=== PATIENT | female | born 1985 | race Caucasian/White ===

== ENCOUNTER 2018-12-20 23:00 | Emergency (ER) | payer OTHER ==
[~2018-12-20] VITALS: Ht 160 cm; Wt 50.4 kg
[~2018-12-20 23:00] MED LIST: CYCL10TA7 PO; HYDR-4011 PO; IBUP-1542 PO; PRENAT PO; TRAM50TA2 PO
[2018-12-20 23:18] VITALS: Ht 160 cm; Wt 50.4 kg
[2018-12-21] MEDS ORDERED: HYDROCODONE/APAP (10/325) TAB PO ONE (03:00)
--- NOTE | 2018-12-21 04:00 | ERD ---
ER Documentation Chief Complaint Chief Complaint C/O LT HIP/PELVIC PAIN S/P FALL, S/O PAIN AND BURNING W/ URINATION X3 DAYS HPI This is a 33-year-old female who was at the park when she said she was playing on some equipment and she slipped because she had socks on doing the splits. She says she is complaining of left groin pain. She said this left leg is was the leg in front of her. She is complaining of pain in the left groin that sharp worse with movement better with rest. Did not have any other trauma or head injury. She has some pain with walking but can stand. She is also complaining of dysuria ROS All systems reviewed and are negative except as per history of present illness. Medications Home Meds Discontinued Reported Medications Multivit/Min/Fol Ac/Iron/Pren* ( S*) 1 Tab Tab, 1 TAB PO DAILY, TAB 05/09/14 Discontinued Scripts Hydrocodone/Acetaminophen ([place] 5-325 Tablet) 1 Each Tablet, 1 TAB PO Q6H PRN for PAIN, #20 TAB Prov:VISHAL SUERO [employer] 05/05/16 Cyclobenzaprine Hcl* (Cyclobenzaprine Hcl*) 10 Mg Tablet, 10 MG PO BID, #10 TAB Prov:DOUG FITZPATRICK PA-C 04/23/16 Ibuprofen* (Motrin*) 600 Mg Tab, 600 MG PO Q6, #30 TAB Prov:DOUG FITZPATRICK PA-C 04/23/16 Tramadol HCl (Tramadol HCl) 50 Mg Tablet, 50 MG PO Q4 PRN for PAIN, #20 TAB Prov:DOUG FITZPATRICK PA-C 04/23/16 Allergies Allergies: Coded Allergies: No Known Drug Allergies (Unverified Allergy, Mild, 12/21/18) PMhx/Soc History of Surgery: Yes (abdominal surgery) Anesthesia Reaction: No Hx Neurological Disorder: No Hx Respiratory Disorders: No Hx Cardiac Disorders: No Hx Psychiatric Problems: No Hx Miscellaneous Medical Probl: No Hx Alcohol Use: No Hx Substance Use: No Hx Tobacco Use: No FmHx Family History: No coronary disease Physical Exam Vitals Vital Signs Date Temp Pulse Resp B/P (MAP) Pulse Ox O2 O2 Flow FiO2 Time Delivery Rate 5/9/19 99.7 83 17 117/56 98 23:18 (76) Physical Exam Const: Well-developed, well-nourished Head: Atraumatic, normocephalic Eyes: Normal Conjunctiva, PERRLA, EOMI, normal sclera, no nystagmus ENT: Normal External Ears, Nose and Mouth, moist mucus membranes. Neck: Full range of motion. No meningismus, no lymphadenopathy. Resp: Clear to auscultation bilaterally, no wheezing, rhonchi, rales Cardio: Regular rate and rhythm, no murmurs, S1 S2 present Abd: Soft, non tender x 4, non distended. Normal bowel sounds, no guarding or rebound, no pulsitile abdominal masses or bruits Skin: No petechiae or rashes, no ecchymosis , no maculopapular rash Back: No midline or flank tenderness Ext: No cyanosis, or edema, FROM x 4, normal inspection, neurovascularly intact x 4, there is tenderness to the left inguinal region there is no deformity, there is no pain with external rotation and flexion Neur: Awake and alert, STR 5/5 x 4, sensation intact x 4, no focal findings, cerebellum intact Psych: Normal Mood and Affect Results 24 hrs Laboratory Tests Test 12/21/18 02:27 12/21/18 02:30 12/21/18 03:08 Bedside Urine pH (LAB) 7.0 Bedside Urine Protein (LAB) Trace Bedside Urine Glucose (UA) Negative Bedside Urine Ketones (LAB) Negative Bedside Urine Blood Trace-intact Bedside Urine Nitrite (LAB) Positive Bedside Urine Leukocyte Esterase 1+ (L POC Beta HCG, Qualitative NEGATIVE Urine Color BELLE Urine Clarity CLOUDY Urine pH 6.0 Urine Specific [place] 1.023 Urine Ketones NEGATIVE mg/dL Urine Nitrite POSITIVE mg/dL Urine Bilirubin NEGATIVE mg/dL Urine Urobilinogen NEGATIVE mg/dL Urine Leukocyte Esterase 1+ [place]/ul Urine Microscopic RBC 10 /HPF Urine Microscopic WBC 46 /HPF Urine Squamous Epithelial Cells FEW /HPF Urine Calcium Oxalate Crystals MANY /HPF Urine Amorphous Crystals FEW /HPF Urine Bacteria FEW /HPF Urine Mucus MANY /HPF Urine Hemoglobin NEGATIVE mg/dL Urine Glucose NEGATIVE mg/dL Urine Total Protein NEGATIVE mg/dl Current Medications Medications Dose Sig/Pati Start Time Status Last (Trade) Ordered Route PRN Stop Time Admin Dose Reason Admin 1 tab ONCE ONCE 12/21/18 DC 12/21/18 Acetaminophen PO 03:00 02:46 / 12/21/18 03:01 Hydrocodone Bitart ([place] ()) Procedures/MDM Patient: ADONIS JACOBS : 1985 Age: 33 Sex: F MR #: [id number] DOS: 12/21/186 Ordering MD: TREVOR HUERTA DO Location: E/R Room/Bed: PROCEDURE: XR Pelvis 1 View (Routine) CLINICAL INDICATION: Pain. Trauma. TECHNIQUE: VIEWS: 1 IMAGES: 1 COMPARISON: Concurrent left hip x-rays and prior lumbar spine x-rays dated April 23, 2016. FINDINGS: OSSEOUS STRUCTURES Fractures: None. 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 JOINTS: Spaces: Preserved. IMPRESSION: 1. No acute osseous abnormalities. RPTAT:HGST Segundo Sanches, Physician Date Time Electronically viewed and signed by Segundo Sanches, Physician on 12/21/2018 03:51 GT/ CC: TREVOR HUERTA DO [id number] Patient: ADONIS JACOBS : 1985 Age: 33 Sex: F MR #: [id number] DOS: 12/21/186 Ordering MD: TREVOR HUERTA DO Location: E/R Room/Bed: PROCEDURE: XR Hip Left 2 View (Routine) CLINICAL INDICATION: Fall. Pain. TECHNIQUE: VIEWS: 2 IMAGES: 2 COMPARISON: Concurrent pelvis x-ray FINDINGS: OSSEOUS STRUCTURES Fractures: None. JOINTS: Spaces: Preserved. IMPRESSION: 1. No acute osseous abnormalities. RPTAT:HGST Segundo Sanches, Physician Date Time Electronically viewed and signed by Segundo Sanches, Physician on 12/21/2018 03:51 GT/ CC: TREVOR HUERTA DO [id number] The patient does have a UTI which will be covered with Macrobid. We will give her pain medication. Discussed with her she may have some type of internal derangement of the left hip and may need MRI in the future. Departure Diagnosis: Primary Impression: Strain of left inguinal muscle Encounter type: initial encounter Qualified Codes: S39.013A - Strain of muscle, fascia and tendon of pelvis, initial encounter Additional Impression: UTI (urinary tract infection) Urinary tract infection type: acute cystitis Hematuria presence: without hematuria Qualified Codes: N30.00 - Acute cystitis without hematuria Condition: Stable TREVOR HUERTA DO December 21, 2018 04:00
[2018-12-21] MEDS ORDERED: HYDR-3980 PO (04:02)
[2018-12-21] MEDS ORDERED: NITR-58 PO (04:02)
[2018-12-21 04:54] VITALS: BP 120/61; PULSE 68; RESP 17
== END 2018-12-21 05:00 | disposition home or self-care (01) ==
LOC: E/R 23:00
DX: S39.013A Strain of muscle, fascia and tendon of pelvis, initial encounter (principal); N30.00 Acute cystitis without hematuria; W01.0XXA Fall on same level from slipping, tripping and stumbling without subsequent striking against object, initial encounter; Y92.9 Unspecified place or not applicable
CPT/HCPCS: 72170; 73510; 81001; 81025; Z7502; Z7610; 81003